=== PATIENT | female | born 1965 | race Caucasian/White ===

== ENCOUNTER 2020-06-23 14:45 | Outpatient (CLI) | payer OTHER, SELFPAY ==
--- NOTE | ~2020-06-23 | XR_ITS ---
EXAMINATION: XR ankle LT min 3V DATE: 06/23/2020 15:17 INDICATION: Left ankle pain and lateral sided swelling TECHNIQUE: Anteroposterior, oblique, mortise, and lateral views of the left ankle were obtained. COMPARISON: None. FINDINGS: Alignment is normal. No fracture. Shallow concavity with irregular cortical margin along the medial rim of the talar dome measuring 12 mm AP and 8 mm medial to lateral consistent with a chronic collaps ed osteochondral lesion. Subtle calcific densities at the defect which could represent residual tiny loose fragment in situ. The tibiotalar joint space however remains otherwise relatively preserved. An kle joint effusion is present. Moderate-sized Achilles and plantar calcaneal spurs. Additional enthes ophytes versus heterotopic ossification related to chronic deltoid ligament injury at the tip of the medial malleolus. IMPRESSION: 1. Chronic collapsed osteochondral lesion potentially with tiny loose fragments in situ along the med ial talar dome likely secondary reactive left ankle joint effusion. Reviewed, dictated and finalized at location . ST PATHOLOGY ASSOCIATE PROFESSOR IMPRESSION: 1. Chronic collapsed osteochondral lesion potentially with tiny loose fragments in situ along the medial talar dome likely secondary reactive left ankle joint effusion.
--- NOTE | ~2020-06-23 | XR_ITS ---
EXAMINATION: XR lumbar spine 2-3V DATE: 06/23/2020 15:19 INDICATION: Right thigh and back pain and numbness. TECHNIQUE: Anteroposterior and lateral views of the lumbar spine, and cone-down lateral view of the l umbosacral junction were obtained. COMPARISON: None. FINDINGS: Alignment is normal. Vertebral body heights are normal. Disc heights are normal with tiny degenerativ e endplate osteophytes at L1-L2 through L3-L4. Moderate facet osteoarthritis at L4-L5 and L5-S1. The central canal appears congenitally small at L4 and more prominently at L5. IMPRESSION: 1. Mild lumbar spondylosis with congenitally small lower lumbar central canal. Reviewed, dictated and finalized at location . OT KNITTER
== END 2020-06-23 14:46 | disposition home or self-care (01) ==
LOC: CHSIMG 14:50
PROVIDERS: PCP Internal Medicine; Visit Provider Internal Medicine
DX: M79.651 Pain in right thigh (principal); M54.9 Dorsalgia, unspecified; M25.572 Pain in left ankle and joints of left foot
CPT/HCPCS: 72100; 73610

== ENCOUNTER 2021-09-12 07:46 | Outpatient (CLI) | payer OTHER, SELFPAY ==
[2021-09-12 08:08] LABS: Eosinophils Absolute Auto 0.22 K/mm3 (0.02-0.50); Eosinophils Percent Auto 3.4 % (1.0-6.0); Hematocrit 40.2 % (35.0-49.0); Hemoglobin 13.4 g/dL (12.0-15.0); Immature Granulocyte Absolute 0.02 K/mm3 (0.00-0.00); Immature Granulocyte Percent A 0.3 % (0.0-0.0); Lymphocytes Absolute Auto 1.93 K/mm3 (1.10-4.50); Lymphocytes Percent Auto 30.2 % (18.0-42.0); Mean Corpuscular HGB Conc 33.3 g/dL (32.0-36.0); Mean Corpuscular Hemoglobin 30.3 pg (27.0-31.0); Monocytes Absolute Auto 0.45 K/mm3 (0.10-0.90); Neutrophils Absolute Auto 3.8 K/mm3 (1.7-7.2); Neutrophils Percent Auto 59.1 % (50.0-70.0); Platelet Count Result 265 K/mm3 (150-420); Red Blood Count 4.42 M/mm3 (4.20-5.40); Red Cell Distribution Width 12.5 % (11.6-14.4); White Blood Count 6.4 K/mm3 (4.8-10.8)
[2021-09-12 08:09] LABS: Appearance Urine Sl Cloudy (Clear); Bilirubin Urine Negative (Negative); Color Urine Light Yellow (Yellow); Glucose Urine UA Negative (Negative); Ketones Urine Negative (Negative); Leukocyte Esterase Ur Negative (Negative); Nitrate Urine Negative (Negative); Protein Urine Negative (Negative); Specific Grav Ur 1.025 (1.010-1.020); Urobilinogen Urine 0.2 mg/dL (0.2-1.0); pH Urine 6.5 (5.0-8.0)
[2021-09-12 08:22] LABS: Add Urine Microscopic? YES; Bacteria Urine 1+ /hpf; Blood Urine Trace-Intact (Negative); Squamous Epithelial Cell Urine Few /hpf (Few); WBC Urine None seen /hpf (0-3)
[2021-09-12 09:06] LABS: Alanine Aminotransferase 20 U/L (14-59); Albumin Level 3.8 g/dL (3.4-5.0); Alkaline Phosphatase 76 U/L (46-116); Anion Gap 8 mmol/L (8-16); Aspartate Amino Transferase 13 U/L (15-37); Bilirubin,Total 0.4 mg/dL (0.00-1.00); Blood Urea Nitrogen 20 mg/dL (7-18); Calcium 8.9 mg/dL (8.5-10.1); Carbon Dioxide 30 mmol/L (21-32); Chloride 104 mmol/L (98-108); Cholesterol 193 mg/dL (0-200); Estimated Glomerular Filt Rate > 60; Glucose 102 mg/dL (70-99); HDL Direct 42 mg/dL (40-60); LDL Cholesterol Calculated 115 mg/dL (<130); Osmolality Calculated 296 mOsm/kg (285-295); Potassium 4.4 mmol/L (3.5-5.1); Sodium 142 mmol/L (136-145); Thyroid Stimulating Hormone 3.95 uIU/mL (0.36-3.74); Total Protein 6.7 g/dL (6.4-8.2); Triglycerides 179 mg/dL (0-150)
[2021-09-12 09:09] LABS: CRP < 0.5 mg/dL (0.0-0.9)
== END 2021-09-12 07:47 | disposition home or self-care (01) ==
LOC: CHSLAB 07:50
PROVIDERS: PCP Internal Medicine; Visit Provider Internal Medicine
DX: Z00.00 Encounter for general adult medical examination without abnormal findings (principal); M19.90 Unspecified osteoarthritis, unspecified site
CPT/HCPCS: 36415; 80053; 80061; 81001; 84443; 85025; 86140

== ENCOUNTER 2021-10-19 15:30 | Outpatient (CLI) | payer BC, SELFPAY ==
[2021-10-19 15:48] LABS: Add Urine Microscopic? YES; Appearance Urine Cloudy (Clear); Bilirubin Urine Negative (Negative); Blood Urine Negative (Negative); Color Urine Light Yellow (Yellow); Glucose Urine UA Negative (Negative); Ketones Urine Negative (Negative); Leukocyte Esterase Ur Negative (Negative); Nitrate Urine Negative (Negative); Protein Urine Negative (Negative); Specific Grav Ur 1.025 (1.010-1.020); Urobilinogen Urine 0.2 mg/dL (0.2-1.0)
[2021-10-19 15:52] LABS: RBC Urine 0-2 /hpf (0-2); WBC Urine 0-3 /hpf (0-3)
[2021-10-19 15:53] LABS: Bacteria Urine 3+ /hpf; Squamous Epithelial Cell Urine Many /hpf (Few)
== END 2021-10-19 15:31 | disposition home or self-care (01) ==
LOC: CHSLAB 15:34
PROVIDERS: PCP Internal Medicine; Visit Provider Internal Medicine
DX: R31.29 Other microscopic hematuria (principal)
CPT/HCPCS: 81001; 88112

== ENCOUNTER 2022-03-25 15:14 | Outpatient (CLI) | payer BC, SELFPAY ==
[2022-03-25 15:30] LABS: Basophils Absolute Auto 0.04 K/mm3 (0.00-0.10); Basophils Percent Auto 0.5 % (0.0-1.0); Eosinophils Absolute Auto 0.32 K/mm3 (0.02-0.50); Eosinophils Percent Auto 4.1 % (1.0-6.0); Hemoglobin 12.3 g/dL (12.0-15.0); Immature Granulocyte Absolute 0.02 K/mm3 (0.00-0.00); Immature Granulocyte Percent A 0.3 % (0.0-0.0); Lymphocytes Absolute Auto 1.87 K/mm3 (1.10-4.50); Lymphocytes Percent Auto 23.7 % (18.0-42.0); Mean Corpuscular HGB Conc 33.2 g/dL (32.0-36.0); Mean Corpuscular Hemoglobin 30.4 pg (27.0-31.0); Mean Corpuscular Volume 91.4 fL (78.0-102.0); Mean Platelet Volume 10.1 fl (9.2-11.8); Monocytes Absolute Auto 0.59 K/mm3 (0.10-0.90); Monocytes Percent Auto 7.5 % (2.0-11.0); Neutrophils Percent Auto 63.9 % (50.0-70.0); Platelet Count Result 261 K/mm3 (150-420); Red Blood Count 4.05 M/mm3 (4.20-5.40); White Blood Count 7.9 K/mm3 (4.8-10.8)
[2022-03-25 15:43] LABS: Hemoglobin A1C 5.8 % (<5.7)
[2022-03-25 15:59] LABS: Alanine Aminotransferase 21 U/L (14-59); Albumin Level 3.7 g/dL (3.4-5.0); Alkaline Phosphatase 83 U/L (46-116); Anion Gap 5 mmol/L (8-16); Aspartate Amino Transferase 16 U/L (15-37); Bilirubin,Total 0.2 mg/dL (0.00-1.00); Blood Urea Nitrogen 16 mg/dL (7-18); Carbon Dioxide 28 mmol/L (21-32); Chloride 105 mmol/L (98-108); Estimated Glomerular Filt Rate > 60; Free T4 Free Thyroxine 0.84 ng/dL (0.76-1.46); Glucose 109 mg/dL (70-99); Osmolality Calculated 288 mOsm/kg (285-295); Potassium 3.8 mmol/L (3.5-5.1); Sodium 138 mmol/L (136-145); Thyroid Stimulating Hormone 3.02 uIU/mL (0.36-3.74); Total Protein 7.1 g/dL (6.4-8.2)
== END 2022-03-25 15:15 | disposition home or self-care (01) ==
LOC: CHSLAB 15:17
PROVIDERS: PCP Internal Medicine; Visit Provider Nurse Practitioner Family
DX: R73.9 Hyperglycemia, unspecified (principal); R21 Rash and other nonspecific skin eruption; N39.0 Urinary tract infection, site not specified
CPT/HCPCS: 36415; 80053; 83036; 84439; 84443; 85025; 87077; 87086; 87088; 87186

== ENCOUNTER 2022-07-02 07:24 | Outpatient (CLI) | payer BC, SELFPAY ==
--- NOTE | ~2022-07-02 | XR_ITS ---
XR hand RT min 3V DATE: 07/02/2022 07:47 INDICATION: Pain of the base of the first digit TECHNIQUE: 3 views COMPARISON: None FINDINGS: There is severe osteoarthritis and an approximately 4 mm chronic likely degenerative ossicl e at the first carpometacarpal joint. No fracture or dislocation, periosteal reaction or bone destruction is detected. IMPRESSION: Severe osteoarthritis and chronic degenerative ossicle at first carpometacarpal joint Reviewed, dictated and finalized at location B. E DELIVERY CLERK IMPRESSION: Severe osteoarthritis and chronic degenerative ossicle at first car pometacarpal joint
== END 2022-07-02 07:25 | disposition home or self-care (01) ==
LOC: CHSIMG 07:26
PROVIDERS: PCP Internal Medicine; Visit Provider Internal Medicine
DX: M79.644 Pain in right finger(s) (principal)
CPT/HCPCS: 73130

== ENCOUNTER 2023-04-28 08:01 | Outpatient (CLI) | payer BC, SELFPAY ==
[2023-04-28 08:15] LABS: Hematocrit 36.8 % (35.0-49.0); Hemoglobin 12.3 g/dL (12.0-15.0); Mean Corpuscular HGB Conc 33.4 g/dL (32.0-36.0); Mean Corpuscular Hemoglobin 30.4 pg (27.0-31.0); Mean Corpuscular Volume 91.1 fL (78.0-102.0); Mean Platelet Volume 9.4 fl (9.2-11.8); Platelet Count Result 230 K/mm3 (150-420); Red Blood Count 4.04 M/mm3 (4.20-5.40); Red Cell Distribution Width 12.6 % (11.6-14.4); White Blood Count 3.7 K/mm3 (4.8-10.8)
[2023-04-28 08:51] LABS: Band Neutrophils Percent 0 % (0-6); Eosinophils Absolute Manual 0.18 K/mm3 (0.02-0.5); Eosinophils Percent Manual 5 % (1-6); Lymphocytes Absolute Manual 1.66 K/mm3 (1.1-4.5); Lymphocytes Percent Manual 45 % (18-44); Monocytes Absolute Manual 0.18 K/mm3 (0.1-0.90); Monocytes Percent Manual 5 % (3-9); Neutrophils Absolute Manual 1.66 K/mm3 (1.7-7.2); Neutrophils Percent Manual 45 % (46-73); Platelet Estimate Adequate (Adequate); Total Cells Counted 100
[2023-04-28 08:59] LABS: Rheumatoid Factor Screen Negative (Negative)
[2023-04-28 09:00] LABS: Alanine Aminotransferase 25 U/L (14-59); Albumin Level 3.6 g/dL (3.4-5.0); Alkaline Phosphatase 80 U/L (46-116); Anion Gap 10 mmol/L (8-16); Aspartate Amino Transferase 15 U/L (15-37); Bilirubin,Total 0.3 mg/dL (0.00-1.00); Blood Urea Nitrogen 15 mg/dL (7-18); CRP 1.6 mg/dL (0.0-0.9); Calcium 9.4 mg/dL (8.5-10.1); Carbon Dioxide 26 mmol/L (21-32); Chloride 104 mmol/L (98-108); Estimated Glomerular Filt Rate > 60; Glucose 101 mg/dL (70-99); Osmolality Calculated 290 mOsm/kg (285-295); Potassium 4.5 mmol/L (3.5-5.1); Sodium 140 mmol/L (136-145); Total Protein 6.7 g/dL (6.4-8.2)
== END 2023-04-28 08:02 | disposition home or self-care (01) ==
LOC: CHSLAB 08:03
PROVIDERS: PCP Internal Medicine; Visit Provider Nurse Practitioner Family
DX: R21 Rash and other nonspecific skin eruption (principal)
CPT/HCPCS: 36415; 80053; 85025; 86038; 86039; 86140; 86430

== ENCOUNTER 2023-06-14 07:15 | Outpatient (CLI) | payer BC, SELFPAY ==
[2023-06-14 07:28] LABS: Basophils Absolute Auto 0.02 K/mm3 (0.00-0.10); Basophils Percent Auto 0.3 % (0.0-1.0); Eosinophils Absolute Auto 0.23 K/mm3 (0.02-0.50); Eosinophils Percent Auto 3.9 % (1.0-6.0); Hematocrit 39.3 % (35.0-49.0); Hemoglobin 12.8 g/dL (12.0-15.0); Immature Granulocyte Absolute 0.02 K/mm3 (0.00-0.00); Immature Granulocyte Percent A 0.3 % (0.0-0.0); Lymphocytes Absolute Auto 1.72 K/mm3 (1.10-4.50); Lymphocytes Percent Auto 29.5 % (18.0-42.0); Mean Corpuscular HGB Conc 32.6 g/dL (32.0-36.0); Mean Platelet Volume 9.8 fl (9.2-11.8); Monocytes Absolute Auto 0.36 K/mm3 (0.10-0.90); Monocytes Percent Auto 6.2 % (2.0-11.0); Neutrophils Absolute Auto 3.5 K/mm3 (1.7-7.2); Neutrophils Percent Auto 59.8 % (50.0-70.0); Platelet Count Result 247 K/mm3 (150-420); Red Blood Count 4.27 M/mm3 (4.20-5.40); Red Cell Distribution Width 12.8 % (11.6-14.4); White Blood Count 5.8 K/mm3 (4.8-10.8)
[2023-06-14 08:05] LABS: CRP 0.6 mg/dL (0.0-0.9)
== END 2023-06-14 07:16 | disposition home or self-care (01) ==
LOC: CHSLAB 07:18
PROVIDERS: PCP Internal Medicine; Visit Provider Internal Medicine
DX: R79.82 Elevated C-reactive protein (CRP) (principal)
CPT/HCPCS: 36415; 85025; 86038; 86039; 86140

== ENCOUNTER 2023-06-30 07:00 | Outpatient (CLI) | payer BC, SELFPAY ==
--- NOTE | ~2023-06-30 | MM_ITS ---
EXAMINATION: MM screening adelfo BI w avi HISTORY: Screening mammogram TECHNIQUE: Craniocaudal and mediolateral oblique 3-D tomosynthesis images were obtained and synthetic 2-D images were generated. CAD analysis was submitted and interpreted. COMPARISON: 12/12/2018 bilateral diagnostic mammogram and ultrasound 11/23/2018 bilateral screening mammogram BREAST PARENCHYMAL COMPOSITION: There are scattered areas of fibroglandular density. FINDINGS: Stable small low-density circumscribed masses in the posterior lateral and posterior medial left breast, the latter with benign calcification. There is no evidence of suspicious mass, calcific ation, or architectural distortion to suggest malignancy in either breast. There has been no suspicio us interval change. IMPRESSION: 1. No mammographic evidence of malignancy. 2. Recommend routine screening mammography in one year. BI-RADS Category 2: Benign finding(s). Reviewed, dictated and finalized at location A. ISHING MACHINE OPERATOR
== END 2023-06-30 07:01 | disposition home or self-care (01) ==
LOC: CHSIMG 07:02
PROVIDERS: PCP Internal Medicine; Visit Provider Internal Medicine
DX: Z12.31 Encounter for screening mammogram for malignant neoplasm of breast (principal)
CPT/HCPCS: 77063; 77067

== ENCOUNTER 2024-09-12 09:10 | Outpatient (CLI) | payer OTHER, SELFPAY ==
--- NOTE | ~2024-09-12 | XR_ITS ---
EXAMINATION: XR ankle RT min 3V, XR heel RT min 2V DATE: 09/12/2024 09:35 INDICATION: Right heel pain TECHNIQUE: 1. Anteroposterior, oblique, mortise, and lateral views of the right ankle were obtained. 2. Axial and lateral views of the right heel were obtained. COMPARISON: None. FINDINGS: Bone alignment is normal. No fracture. Joint spaces are normal. Moderate-sized Achilles and plantar c alcaneal spurs with some additional diffuse hepatic ossification the distal Achilles tendon. Mild ove rlying soft tissue swelling about the due to tendinopathy or retrocalcaneal bursitis. Small enthesoph yte at the lateral base of the fifth metatarsal. Small amount of heterotopic ossification about the m edial malleolus which could also be enthesopathic or sequela of old trauma. IMPRESSION: 1. Chronic enthesopathy as detailed above. Soft tissue swelling overlying moderate-sized Achilles christopher caneal spur which could be due to associated Achilles tendinosis or overlying retrocalcaneal bursitis . Reviewed, dictated and finalized at location A. CAL RECORD CLERK IMPRESSION: 1. Chronic enthesopathy as detailed above. Soft tissue swelling overlying moder ate-sized Achilles calcaneal spur which could be due to associated Achilles ten dinosis or overlying retrocalcaneal bursitis.
--- OUTSIDE RECORDS SUMMARY | 2024-09-12 09:50 | XMS_ITS | Clinical Summary ---
Author Organization [facility] Address [address] [place] [id number] Care Team Providers Care Logging Equipment Mechanic Name Role Phone Reyes Rm MD Primary Care Provider [phone] Allergies No known active allergies Medications meloxicam 15 MG tablet Take 1 tablet (15 mg total) by mouth daily. 30 tablet 2 9 Active methylPREDNISol one, BREANN, (MEDROL) 4 MG tablet Follow package directions 1 each 9 Active Active Problems Problem Noted Date Diagnosed Date Primary osteoarthritis of fi rst carpometacarpal joint of right hand 05/10/2019 Family History Medical History Relation Comments Diabetes Father Heart Disease Father Hypertension Mother Relation Status Comments Father Mother Social History Tobacco Use Types Packs/Day Years Used Date Smoking Tobacco: Never Smokeless Tobacco: Never Alcohol Use Standard Drinks/Week Comments No 0 (1 standard drink = 0.6 oz pur e alcohol) AUDIT-C Answer Date Recorded Frequency of Alcohol Consumption Never 05/10/2019 Average Number of Drinks Not on file 019 Frequency of Binge Drinking Not on file 05/01 Comments Unknown Sex and Gender Information Value Date Recorded Sex Assigned at Not on file Legal Sex Female 10:54 AM CDT Gender Identity Not on file Sexual Orientation Not on file Last Filed Vital Signs Vital Sign Reading Time Taken Comments Blood Pressure - - Pulse - - Temperature - - Respiratory Rate - - Oxygen Saturation - - Inhaled Oxygen Concentration - - Weight 81.6 kg (180 lb) 05/10/2019 3:36 PM CDT Height 152.4 cm (5') 05/10/2019 3:36 PM CDT Body Mass Index 35.15 05/10/2019 3:36 PM CDT Plan of Treatment Health Maintenance Due Date Last Done Comments Cervical Cancer Screening Pa p Smear (Age 30 to 64) Every 3 Years 1966 Colorectal Cancer Screening Colonoscopy (10 Years) 1966 Annual Physical 1969 Hepatitis C 1984 DTaP, Tdap and Td Vaccines ( 1 - Tdap) 1985 Hepatitis B Vaccines (1 of 3 - 19+ 3-dose series) 1985 Cervical Cancer Screening Pa p with HPV Testing (Age 30 to 64) Every 5 Years 1996 Cervical Cancer Screening with HPV 1996 Mammogram Screening 2006 Zoster Vaccines (1 of 2) 2016 COVID-19 Vaccine (2023-2 5 season) 2024 Influenza Adult (#1) 2024 Meningococcal B Vaccine Aged Out No l onger eligible based on patient's age to complete this topic Meningococcal Vaccine Aged Out No jaqueline angelica eligible based on patient's age to complete this topic Pneumococcal Vaccine: Pediat rics (0 to 5 Years) and At-Risk Patients (6 to 64 Years) Aged Out No longer eligible b ased on patient's age to complete this topic RSV Immunizations Under 20 Months Aged Out No longer eligible based on patient's age to complete this topic Insurance [employer] Care Teams Logging Equipment Mechanic Relationship Specialty Start Date End Date Reyes Rm MD [address] [place] [address] PCP - General INTERNAL MEDICINE 05/10/19
== END 2024-09-12 09:11 | disposition home or self-care (01) ==
PROVIDERS: PCP Internal Medicine; Visit Provider Internal Medicine
DX: M79.671 Pain in right foot (principal); M77.31 Calcaneal spur, right foot; M79.89 Other specified soft tissue disorders
CPT/HCPCS: 73610; 73650

== ENCOUNTER 2024-09-17 07:50 | Outpatient (RCR) | payer OTHER, BC, SELFPAY ==
--- NOTE | 2024-09-17 08:56 | PTOPEVAL1 ---
Assessment and note entered by Lucio Albarran Evaluation Information Assessment Status Evaluation Diagnosis right achilles tendinitis ICD-10 Condition Codes (PT) Pain in right ankle and joints of right foot M25. 571 Onset 06/17/25 Subjective Information Pt. reports she has had 3 months of heel pain. She recalls no incident just gradual onset. Pt. reports that pain is not increased by anything particular. She reports that pain will wake her at night. she reports that she can go several days without pain. She describes pain at the right heel. She states that her goal is to reduce her right foot/ankle pain. Reported Pain Level Pain Score 3: Self Report Assessment PT Clinical Summary Pt. is a 58 year old female who enters the clinic with right Achilles tendinitis. She presents with impaired ROM, impaired flexibility, impaired strength and impaired gait on this date. Continued skilled PT is indicated in order to improve these areas to allow for improve comfort with standing activities. Plan of Care Interventions Electrical Stimulation,Gait Training,Hot Pack/Cold Pack,Manual Therapy,Neuro Re-education,Patient/ Caregiver Education,Therapeutic Activities, Therapeutic Exercise PT Services Indicated Yes Treatment Frequency and 1x/week x 6 visits Duration These treatments will address the objective and functional deficits as defined above. The patient will be advanced safely and appropriately in order for the patient to progress towards his/her prior level of function. Additional exercises will be introduced and as well as a comprehensive home exercise program upon discharge, if needed, ?to ensure carryover of functional gains achieved in the clinic. This treatment plan has been reviewed and agreement upon by the patient.
--- NOTE | 2024-10-24 08:18 | OPREHPOC ---
Outpatient Therapy Plan of Care This is a Multidisciplinary Plan of Care that may contain components documented by all disciplines (PT, OT, and ST.) PT Problem 1 PT Problem #1 Knowledge Deficit PT Goal 1 Goal / Goal Update Pt. will be independent with a HEP focused on flexibility and ROM. Target Visit 2 Progress Met PT Problem 2 PT Problem #2 Pain PT Goal 1 Goal / Goal Update Pt. will report pain levels at 1/10 at worst for a 2 week period Target Visit 6 Progress Not Met PT Problem 3 PT Problem #3 Impaired Range of Motion PT Goal 1 Goal / Goal Update Pt. will present with 15 degrees active right ankle dorsiflexion. Progress Met PT Problem 4 PT Problem #4 Impaired Strength PT Goal 1 Goal / Goal Update Pt. will complete 20 single limb heel raises on right without pain and symmetry to the left. Target Visit 6 Progress Met
--- NOTE | 2024-10-24 08:19 | PTOPREEVAL ---
Assessment and note entered by JT File, PT Evaluation Information Assessment Status Re-evaluation Diagnosis right achilles tendinitis ICD-10 Condition Codes (PT) Pain in right ankle and joints of right foot M25. 571 Onset 06/17/25 Subjective Information patient reports she feels Good today. she reports she has no pain today. she reports this past tuesday it was really bad. she reports it was back to pulling, tingling, and hurting. she reports she did a lot of walking on tuesday. she reports today it is painless and feeling good. she reports she follows up with her PCP today. patient reports she would not have been able to tolerate any palpation or exercises to the R ankle 6 weeks ago that she has no issues with today. Reported Pain Level Pain Score 0: Self Report Assessment PT Clinical Summary mrs. pires presents to skilled PT for her 6th skilled PT visit. she presents today with no pain, but did have a flare up of pain in the R heel/ achilles tuesday after some increased activity. she has met all goals for skilled PT, except for pain goal at worst. she would benefit from continued skilled PT with focus of achievement of remaining pain goal. she was educated to acquire some heel lifts for her bilateral shoes, and continue with skilled PT every other week. Plan of Care Interventions Electrical Stimulation,Gait Training,Hot Pack/Cold Pack,Manual Therapy,Neuro Re-education,Patient/ Caregiver Education,Therapeutic Activities, Therapeutic Exercise PT Services Indicated Yes Treatment Frequency and 1x every other week for 2 more visits Duration These treatments will address the objective and functional deficits as defined above. The patient will be advanced safely and appropriately in order for the patient to progress towards his/her prior level of function. Additional exercises will be introduced and as well as a comprehensive home exercise program upon discharge, if needed, ?to ensure carryover of functional gains achieved in the clinic. This treatment plan has been reviewed and agreement upon by the patient.
--- NOTE | 2024-11-21 07:48 | PTOPDC ---
Assessment and note entered by JT File, PT Evaluation Information Assessment Status Discharge Diagnosis right achilles tendinitis ICD-10 Condition Codes (PT) Pain in right ankle and joints of right foot M25. 571 Onset 06/17/25 Subjective Information patient reports she is feeling better lately. she reports it can be a little sore and burning/ throbbing at times, but today she has not had any of these issues. she reports she is unsure of any activities at this point that cause her heel/ Achilles to start getting sore. she reports she is able to complete all her daily activities including a lot of steps to go up and down at home . she reports she has not yet gotten heel inserts to try in her shoes. Reported Pain Level Pain Score 0: Self Report Assessment PT Clinical Summary mrs. pires presents to skilled PT for her 8th skilled PT visit. she continues to have a little soreness and burning at times in the R achilles/ heel. however, she has met all goals for skilled PT as of today. she will DC skilled PT and continue with HEP independent at home. Plan of Care PT Services Indicated Yes
== END 2024-11-21 22:07 | disposition home or self-care (01) ==
LOC: CHSPT 07:50
PROVIDERS: PCP Internal Medicine; Visit Provider Internal Medicine
DX: M76.61 Achilles tendinitis, right leg (principal)
CPT/HCPCS: 97014; 97110; 97112; 97140; 97161; G0283